=== PATIENT | female | born 1985 ===

== ENCOUNTER 2016-12-05 15:33 | Emergency (ER) | payer OTHER ==
--- NOTE | 2016-12-05 15:44 | UC ---
Hip/Pelvis Pain - HPI Summary HPI Summary: 31 year female presents with complains of right hip pain. No trauma. - History Of Current Complaint Stated Complaint: RIGHT HIP PAIN Time Seen by Provider: 12/05/16 15:44 - Allergies/Home Medications Allergies/Adverse Reactions: Allergies Allergy/AdvReac Type Severity Reaction Status Date / Time Amoxicillin Allergy Hives Verified 12/05/16 15:53 Latex Allergy Blisters Verified 12/05/16 15:53 bee Allergy See Comment Uncoded 12/05/16 15:53 Home Medications: Home Medications Buprenorphine/Naloxone SL TAB* [Suboxone 8-2 mg SL TAB*] 2 tab SL DAILY [History Confirmed 12/05/16] PMH/Surg Hx/FS Hx/Imm Hx Previously Healthy: Yes - healthy Psychological History: Depression, Bipolar Disorder - Surgical History Surgical History: Yes Other Surgical History: essure. tubal ligation. left ankle orif - Social History Occupation: Unemployed Lives: Alone Alcohol Use: None Review of Systems Constitutional: Negative Skin: Negative Eyes: Negative ENT: Negative Respiratory: Negative Cardiovascular: Negative Gastrointestinal: Negative Genitourinary: Negative Motor: Negative Neurovascular: Negative Musculoskeletal: Myalgia Neurological: Negative Psychological: Negative All Other Systems Reviewed And Are Negative: Yes Physical Exam Triage Information Reviewed: Yes Eye Exam: Normal ENT Exam: Normal Dental Exam: Normal Neck exam: Normal Neck: Positive: 1 Respiratory Exam: Normal Cardiovascular Exam: Normal Abdominal Exam: Normal Musculoskeletal: Positive: Other: - right hip pain right greater trochanteric bursitis Neurological Exam: Normal Neurological: Positive: Other: - right hip pain Psychological Exam: Normal Skin Exam: Normal Hip Injury Course/Dx - Differential Dx/Diagnosis Differential Diagnosis/HQI/PQRI: Bursitis, Sprain, Strain Provider Diagnoses: right greater trochanteric bursitis Discharge - Discharge Plan Condition: Stable Disposition: HOME Prescriptions: Diclofenac 1% GEL (NF) [Voltaren 1% GEL (NF)] 2 gm TOPICAL BID #1 tube Meloxicam [Mobic] 7.5 mg PO BID #30 tab Methocarbamol TAB* [Robaxin 500 MG TAB*] 500 mg PO TID PRN #30 tab PRN Reason: Spasms Patient Education Materials: Hip Bursitis (ED), Hip Pain (ED) Referrals: Espinoza Maldonado MD [Medical Doctor] -
[2016-12-05 15:53] VITALS: BP 122/75
== END 2016-12-05 16:15 | disposition home or self-care (01) ==
LOC: UCCORT 15:33
DX: M70.61 Trochanteric bursitis, right hip (principal); Y93.9 Activity, unspecified; F31.9 Bipolar disorder, unspecified; Z88.1 Allergy status to other antibiotic agents; Z91.030 Bee allergy status; Z91.040 Latex allergy status
CPT/HCPCS: 99212; G0463